=== PATIENT | male | born 1940 | race Caucasian/White ===

== ENCOUNTER 2021-12-09 11:55 | Outpatient (CLI) | payer OTHER ==
[~2021-12-09 11:55] MED LIST: CELEBREX100 MG PO; DIAZEPAM5 MG PO; SKELAXIN800 MG PO
== END 2021-12-09 12:00 | disposition home or self-care (01) ==
LOC: RAD 11:55
PROVIDERS: ATTEND Ophthalmology
DX: H25.013 Cortical age-related cataract, bilateral (principal); Z98.49 Cataract extraction status, unspecified eye

== ENCOUNTER 2022-12-19 14:17 | Outpatient (CLI) | payer OTHER ==
[~2022-12-19 14:17] MED LIST changes: +AVAPRO300 MG PO; +CARVEDILOL12.5 MG; +HUMALOG100 UNIT/2; +INDAPAMIDE1.25 MG PO; +JANUMET 50-1,01 EACH PO; +JARDIANCE25 MG PO; +LANTUS SOL100 UNIT/1; +LIPITOR40 M1 PO; +NORVASC10 MG PO; +VAZALORE81 MG PO; +ZETIA10 MG
== END 2022-12-19 14:20 | disposition home or self-care (01) ==
LOC: RAD 14:17
DX: M17.0 Bilateral primary osteoarthritis of knee (principal)

== ENCOUNTER 2023-07-27 09:34 | Outpatient (CLI) | payer OTHER | END 2023-07-27 10:07 | disposition home or self-care (01) | LOC: RAD 09:34 | DX: M17.0 Bilateral primary osteoarthritis of knee (principal); N18.2 Chronic kidney disease, stage 2 (mild) ==